=== PATIENT | male | born 1945 | race Caucasian/White ===

== ENCOUNTER → 2016-03-22 | Outpatient (CLI) | payer OTHER ==
[~2016-03-22] MED LIST: AMOXICILLIN500 M1 PO; CIPRODEX OTIC7.5 ML LEFT EAR
== END | disposition home or self-care (01) ==
DX: M17.11 Unilateral primary osteoarthritis, right knee (principal)
CPT/HCPCS: 97110 GP; 97150 GO; 97161 GP; 97165 GO; G8978 GP; G8979 GP; G8980 GP; G8987 GO; G8988 GO; G8989 GO

== ENCOUNTER 2016-04-04 09:29 | Inpatient (IN) | payer OTHER ==
[~2016-04-04] VITALS: Ht 180.3 cm; Wt 90.0 kg
[~2016-04-04 09:29] MED LIST changes: +CENTRUM SILVER1 EAC3 PO; +LIPITOR40 MG PO; +LO-DOSE ASPIRIN81 M2 PO; +LOPRESSOR25 MG PO; +NORVASC5 MG PO
[2016-04-04] MEDS ORDERED: ALEVE220 MG PO (10:12)
[2016-04-04 10:14] VITALS: BP 123/73
[2016-04-04 18:11] VITALS: BP 133/79
[2016-04-04 20:34] VITALS: BP 133/73
[2016-04-05] VITALS: BP 107/65
[2016-04-05 04:01] VITALS: BP 107/63
[2016-04-05 05:54] LABS: HEMATOCRIT 38.3 % (38.0-50.0); MCV 86.7 FL (86-99)
[2016-04-05 06:10] LABS: INTER. NORMALIZED RATIO 1.1
[2016-04-05 06:18] LABS: ANION GAP 7 MEQ/L (2-14); CHLORIDE 107 MEQ/L (99-109); GFR ESTIMATE (CALCULATED) > 59 mL/min/; GLUCOSE 118 mg/dL (70-99); POTASSIUM 4.9 MEQ/L (3.7-5.4); SAMPLE HEMOLYSIS CHECK 0; SAMPLE ICTERIC CHECK 0; SAMPLE LIPEMIA CHECK 0; SODIUM 142 MEQ/L (136-147); UREA NITROGEN (BUN) 15 mg/dL (9-23)
[2016-04-05] MEDS ORDERED: VISTARIL25 MG PO (07:36)
[2016-04-05] MEDS ORDERED: PERCOCET 5/31 TABLET PO (07:36)
[2016-04-05] MEDS ORDERED: COUMADIN2.5 MG PO (07:36)
[2016-04-05] MEDS ORDERED: PT/INR (07:37)
[2016-04-05 07:39] LABS: POINT-OF-CARE METER ID UU14188577
[2016-04-05 08:22] VITALS: BP 108/62
[2016-04-05 12:12] VITALS: BP 105/57
[2016-04-05] MEDS ORDERED: ADULT FOLDING1 EACH MC (15:28)
[2016-04-05 15:34] VITALS: BP 109/62
[2016-04-06 00:31] VITALS: BP 121/71
[2016-04-06 07:04] LABS: HEMATOCRIT 35.5 % (38.0-50.0); MCV 87.9 FL (86-99)
[2016-04-06 07:06] LABS: INTER. NORMALIZED RATIO 1.4; PROTHROMBIN TIME 14.3 (9.2-11.2)
[2016-04-06 08:15] VITALS: BP 139/64
== END 2016-04-06 16:42 | DRG 470 ==
LOC: 2SOUTH 09:29 → 3EAST 09:37 → 2SOUTH 10:11 → 3EAST 18:04
PROVIDERS: Orthopaedic Surgery
PROC: 0SRC0J9 Replacement of Right Knee Joint with Synthetic Substitute, Cemented, Open Approach (ICD-10-PCS; principal; 2016-04-04)
DX: M17.11 Unilateral primary osteoarthritis, right knee (principal); I10 Essential (primary) hypertension; E78.5 Hyperlipidemia, unspecified; I25.10 Atherosclerotic heart disease of native coronary artery without angina pectoris; I51.7 Cardiomegaly; I34.0 Nonrheumatic mitral (valve) insufficiency; I36.1 Nonrheumatic tricuspid (valve) insufficiency; F17.210 Nicotine dependence, cigarettes, uncomplicated; E66.3 Overweight; Z79.82 Long term (current) use of aspirin; Z68.28 Body mass index [BMI] 28.0-28.9, adult; Z95.5 Presence of coronary angioplasty implant and graft
CPT/HCPCS: 36415; 80048; 82948; 85014; 85018; 85610; 86850; 86870; 86900; 86901; 86905; 86920; 86999; C1713; J0690; J1100; J1885; J2250; J2405; J3010; J7050; J7120